=== PATIENT | female | born 1955 | race Caucasian/White ===

== ENCOUNTER 2018-05-05 09:47 | Outpatient (CLI) | payer BC ==
--- NOTE | 2018-05-05 18:04 | MRI Report ---
Procedure Date: 05/05/2018 Accession Number: [id number] / [id number] Procedure: MRI - Shoulder LT W/O CPT Code: FULL RESULT: EXAM: LEFT SHOULDER MRI WITHOUT CONTRAST EXAM DATE: 05/05/2018 10:39 AM. CLINICAL HISTORY: Left shoulder pain. COMPARISON: Radiographs 04/24/2018. TECHNIQUE: Multiplanar, multisequence T1-weighted and fluid-sensitive sequences of the shoulder without contrast. Other: None. FINDINGS: Acromioclavicular Region: The acromion is type II with mild lateral downsloping. Moderate degenerative change at the joint with inferiorly directed osteophytes resulting in mass effect on the supraspinatus myotendinous junction. The coracoacromial and coracoclavicular ligaments are intact. Minimal subacromial/subdeltoid bursal fluid. Glenohumeral Region: No subluxation. Small joint effusion with synovitis. Articular cartilage is unremarkable. Minimal edema in the joint capsule of the axillary recess. This may be reactive. Bone Marrow: No fracture or bone lesion. Mild reactive edema at the greater and lesser tuberosities. Labrum: Degenerative fraying at the posterior superior aspect. Musculature/Rotator Cuff: Mild supraspinatus tendinopathy with shallow bursal surface fraying. Partial thickness intrasubstance and articular surface tear at the insertion of the anterior and central fibers involving a region measuring 1.7 x 1.8 cm, AP by transverse. This involves greater than 50% of the tendon thickness. Infraspinatus and teres minor tendons intact. Mild subscapularis tendinopathy with deep partial-thickness to full-thickness tear at the mid to superior fibers. No focal fatty atrophy. Mild edema subscapularis myotendinous junction. Biceps Tendon: Mild thickening of the intra-articular and extra-articular portions with medial subluxation from the groove and intrasubstance tearing. Moderate amount of fluid in the tendon sheath. Other: The subcutaneous tissues are unremarkable. IMPRESSION: 1. Mild supraspinatus tendinopathy with deep partial-thickness intrasubstance and articular surface tear at the anterior and central fibers. 2. Mild subscapularis tendinopathy with deep partial-thickness to full-thickness tear at the mid to superior insertion. 3. Mild biceps tendinopathy with medial subluxation from the groove and intrasubstance tearing. 4. Degenerative fraying posterior superior labrum. 5. Moderate acromioclavicular degenerative change. 6. Acromioclavicular osteophytes and lateral downsloping of the acromion may contribute to symptoms of impingement. [facility]IA MUSCULOSKELETAL RADIOLOGY SECTION
== END 2018-05-05 09:48 | disposition home or self-care (01) ==
LOC: DI 09:47
PROVIDERS: ATTEND Orthopaedic Surgery
DX: M75.102 Unspecified rotator cuff tear or rupture of left shoulder, not specified as traumatic (principal); M75.82 Other shoulder lesions, left shoulder; M25.712 Osteophyte, left shoulder

== ENCOUNTER 2018-08-28 08:36 | Outpatient (CLI) | payer BC ==
--- NOTE | 2018-08-29 09:10 | Mammography Report ---
Reason: SCREENING MAMMO Procedure Date: 08/28/2018 Accession Number: [id number] / [id number] Procedure: [facility] - Screening Mammo w/Roly CPT Code: FULL RESULT: EXAM: Screening Mammo w/Roly DATE: 08/28/2018 9:07 AM CLINICAL HISTORY: Screening encounter. History of late childbearing. Family history of breast cancer in an aunt at the age of 35. TECHNIQUE: Bilateral CC and MLO views were obtained. COMPARISON: 10/04/2015 through 09/04/2011. FINDINGS: The breasts demonstrate diffuse fatty replacement bilaterally. Typically benign coarse calcifications are redemonstrated. No suspicious masses, clustered microcalcifications, or regions of architectural distortion are identified. IMPRESSION: Benign findings RECOMMENDATION: Routine annual screening unless otherwise clinically indicated. BIRADS CATEGORY 2: Benign findings STANDARD QUALIFYING STATEMENTS: 1. This examination was not reviewed with the aid of Computer-Aided Detection (CAD). 2. A negative or benign imaging report should not preclude biopsy if clinically suspicious findings are present. 3. Dense breasts may obscure an underlying neoplasm. 4. This examination was reviewed with the aid of 3D breast imaging (tomosynthesis).
== END 2018-08-28 08:37 | disposition home or self-care (01) ==
LOC: DI 08:36
DX: Z12.31 Encounter for screening mammogram for malignant neoplasm of breast (principal); Z80.3 Family history of malignant neoplasm of breast
CPT/HCPCS: 77063; 77067

== ENCOUNTER 2019-09-02 08:21 | Outpatient (CLI) | payer BC ==
--- NOTE | 2019-09-02 11:53 | Mammography Report ---
Reason: ROUTINE MAMMO Procedure Date: 09/02/2019 Accession Number: [id number] / [id number] Procedure: [facility] - Screening Mammo Dig Bilat CPT Code: Final Report FULL RESULT: EXAM: Screening Mammo Dig Bilat DATE: 09/02/2019 8:43 AM CLINICAL HISTORY: History of late childbearing. Screening encounter. History of benign left breast biopsy. TECHNIQUE: (B) - Bilateral CC and MLO views were obtained. COMPARISON: 08/28/2018 through 07/29/2013. PARENCHYMAL PATTERN: (A) - The breast(s) demonstrate(s) scattered fibroglandular densities. FINDINGS: There are coarse typically benign calcifications. There are no suspicious masses, calcifications, or areas of distortion. IMPRESSION: Benign findings. BI-RADS category 2. RECOMMENDATION: (ANNUAL) - Recommend routine annual screening mammography. BI-RADS CATEGORY: (2) - Benign Findings. STANDARD QUALIFYING STATEMENTS: 1. This examination was not reviewed with the aid of Computer-Aided Detection (CAD). 2. A negative or benign imaging report should not preclude biopsy if clinically suspicious findings are present. 3. Dense breasts may obscure an underlying neoplasm. 4. This examination was reviewed without the aid of 3D breast imaging (tomosynthesis).
== END 2019-09-02 08:22 | disposition home or self-care (01) ==
LOC: DI.N 08:21
PROVIDERS: ATTEND Internal Medicine
DX: Z12.31 Encounter for screening mammogram for malignant neoplasm of breast (principal)
CPT/HCPCS: 77067

== ENCOUNTER 2020-11-24 10:54 | Outpatient (CLI) | payer BC ==
--- NOTE | 2020-11-25 11:44 | Mammography Report ---
BILATERAL DIGITAL SCREENING MAMMOGRAM 3D/2D: 11/24/2020 CLINICAL: Routine screening. Comparison is made to exams dated: 09/02/2019 mammogram, 08/28/2018 mammogram, 10/04/2015 mammogram, a nd 10/04/2014 mammogram - [facility]. There are scattered fibroglandular elements i n both breasts. No significant masses, calcifications, or other findings are seen in either breast. There has been no significant interval change. IMPRESSION: NEGATIVE There is no mammographic evidence of malignancy. A 1 year screening mammogram is recommended. This exam was interpreted at Station ID: [id number]. NOTE: For mammograms, a report in lay terms will be sent to the patient. Approximately 15% of breast malignancies will not be visualized mammographically. In the management of a palpable breast mass, a negative mammogram must not discourage biopsy of a clinically suspicious lesion. Electronically Signed By: Selvin Mac M.D. slc/penrad:11/24/2020 12:20:21 ACR BI-RADS Category 1: Negative 3341F PARENCHYMAL PATTERN: (A) - The breast(s) demonstrate(s) scattered fibroglandular densities. BI-RADS CATEGORY: (1) - 1 RECOMMENDATION: (ANNUAL) - Recommend routine annual screening mammography. [id number] 1 year screening LATERALITY: (B)
== END 2020-11-24 10:55 | disposition home or self-care (01) ==
LOC: DI.N 10:54
PROVIDERS: ATTEND Internal Medicine
DX: Z12.31 Encounter for screening mammogram for malignant neoplasm of breast (principal)